=== PATIENT | female | born 1990 | race Caucasian/White ===

== ENCOUNTER 2016-07-27 23:33 | Emergency (ER) | payer OTHER ==
[2016-07-28] MEDS ORDERED: IV NORMAL SALINE 1,000ML 1,000 ML IV SCH (00:04)
--- NOTE | 2016-07-28 00:30 | PHYS DOC ---
General Chief Complaint: ABDOMINAL PAIN Stated Complaint: PAIN IN LOWER ABDOMEN AND VAGINA,10 WEEKS PREGNAT Time Seen by MD: 23:44 Source: patient Exam Limitations: no limitations Problems: History of Present Illness Initial Comments Pt is 25/F to ED c/o miscarriage. Pt states she is 10 weeks gestation, she had a miscarriage last April and became with current prior to having a period, so LMP was January but not applicable to current . Pt A6, she follows with Dr Wilder [facility] [place]. Pt had US evaluation 2.5 weeks ago described as normal. Pt says earlier today she developed severe b/l lower abdominal pain and vaginal discomfort "like someone punched me in the vagina" which she states are symptoms associated with her prior miscarriages. Denies vaginal discharge no bleeding. No cp/sob/vo/calf swelling pt is very anxious and fearful of another miscarriage. Timing/Duration: 4-6 hours Severity: severe Modifying Factors: improves with other Associated Symptoms: other Allergies: Coded Allergies: Penicillins (Verified Allergy, Intermediate, 04/25/15) Past Medical History Medical History: hypertension (hypoglycemia) Surgical History: noncontributory (CS) Social History Smoker: non-smoker Alcohol: none Drugs: none Review of Systems Constitutional: denies chills, denies diaphoresis, denies fever, malaise Respiratory: denies cough, denies shortness of breath Cardiovascular: denies chest pain, denies palpitations, denies syncope Gastrointestinal: see HPI Genitourinary: see HPI Musculoskeletal: denies back pain, denies joint swelling, denies neck pain Psychiatric/Neurological: denies headache, denies numbness, denies paresthesia Physical Exam General Appearance: mild distress, obese Eyes: bilateral eye EOMI, bilateral eye PERRL, bilateral eye normal inspection Ear, Nose, Throat: hearing grossly normal, normal ENT inspection, normal pharynx Neck: non-tender, supple Respiratory: normal breath sounds, no respiratory distress Cardiovascular: normal peripheral pulses, regular rate, rhythm Gastrointestinal: soft (obese nondistended BS normal nontender no masses) Rectal: deferred Back: no CVA tenderness, no vertebral tenderness Extremities: non-tender, normal inspection Neurologic/Psychiatric: crew director II-XII nml as tested, no motor/sensory deficits, alert, normal mood/affect, oriented x 3 Skin: normal color, warm/dry Orders, Labs, Meds PATIENT: ISMA BEE ACCOUNT: [id number] : 1990 LOCATION: ER AGE: 25 SEX: F EXAM STATUS: PRE ER ORD. PHYSICIAN: DANIAL HERRERA DO REASON: abdominal pain, h/o 5 miscarriages PROCEDURE: OB <14 WKS Ultrasound Ob Indication: Pelvic pain for 3 hours. The uterus measures 9.7 x 6.9 centimeters. There is an intrauterine gestational sac containing a pole. Freeborn-rump length measurement is approximately 3.4 centimeters consistent with 10 weeks 1 day gestation. heart rate was recorded at 168 beats per minute. No perigestational sac hemorrhage is seen. There is a 2.5 centimeter corpus luteum on the left. No free fluid is seen. Impression: Single live IUP 10 weeks 1 day gestational age. No complicating features are detected. Estimated date of confinement sonographically is 02/22/2017. Electronically signed by: Lamin Mayers MD (Jul 28, 2016 01:24:15) DICTATED AND SIGNED BY: LAMIN MAYERS MD DATE: 07/28/16 0124 CC: PCP,NO; DANIAL HERRERA DO ~ WBC 11.5, K+ 3.4 (20 meq kcl given) Departure Time of Disposition: 01:41 Disposition: 01 HOME, SELF-CARE Diagnosis: abdominal pain in , hypokalemia Condition: IMPROVED Patient Instructions: Abdominal Pain During , Tbli-km-Keep, Heartburn During , Medicines During Additional Instructions: See handout for approved meds during . Eat one banana twice daily until doctor follow up. Continue care and vitamins. Drink plenty of fluids, gatorade/water. OTC tylenol as needed. Follow up with your audit manager as scheduled. Return to ED with new or changing symptoms. DANIAL HERRERA DO Jul 28, 2016 00:29
[2016-07-28 01:09] LABS: BASO # 0.4 x10^3/uL (0.0-0.2); BASO % 3 % (0-3); EOS # 0.2 x10^3/uL (0.0-0.7); EOS % 2 % (0-3); HEMATOCRIT 43.5 % (36.0-47.0); HEMOGLOBIN 14.3 g/dL (12.0-15.5); LYMPH # 3.3 x10^3/uL (1.0-4.8); LYMPH % 29 % (24-48); MEAN CORPUSCULAR HEMOGLOBIN 28 pg (25-35); MEAN CORPUSCULAR HGB CONC 33 g/dL (31-37); MEAN CORPUSCULAR VOLUME 86 fL (79-100); MONO # 0.6 x10^3/uL (0.0-1.1); MONO % 5 % (0-9); NEUT # 7.1 x10^3uL (1.8-7.7); NEUT % 62 % (31-73); PLATELET COUNT 222 x10^3/uL (140-400); RED BLOOD COUNT 5.09 x10^6/uL (3.50-5.40); RED CELL DISTRIBUTION WIDTH 14.3 % (11.5-14.5); WHITE BLOOD COUNT 11.5 x10^3/uL (4.0-11.0)
[2016-07-28 01:24] LABS: BACTERIA,URINE FEW /HPF (0-FEW); BILIRUBIN,URINE NEG (NEG); CLARITY,URINE HAZY; COLOR,URINE YELLOW; GLUCOSE,URINE NEG (NEG); NITRITE,URINE NEG (NEG); RBC,URINE OCC /HPF (0-2); SQUAMOUS EPITHELIAL CELL,UR MOD /LPF; UROBILINOGEN,URINE 0.2 mg/dL (0.2 mg/dL); WBC,URINE OCC /HPF (0-4)
--- NOTE | 2016-07-28 01:25 | RAD ---
Ultrasound Ob Indication: Pelvic pain for 3 hours. The uterus measures 9.7 x 6.9 centimeters. There is an intrauterine gestational sac containing a pole. [place]au-rump length measurement is approximately 3.4 centimeters consistent with 10 weeks 1 day gestation. heart rate was recorded at 168 beats per minute. No perigestational sac hemorrhage is seen. There is a 2.5 centimeter corpus luteum on the left. No free fluid is seen. Impression: Single live IUP 10 weeks 1 day gestational age. No complicating features are detected. Estimated date of confinement sonographically is 02/22/2017. Electronically signed by: Lamin Mayers MD (Jul 28, 2016 01:24:15)
[2016-07-28 01:47] LABS: ALBUMIN 3.3 g/dL (3.4-5.0); CALCIUM 9.3 mg/dL (8.5-10.1); CREATININE 0.7 mg/dL (0.6-1.0); DIRECT BILIRUBIN 0.1 mg/dL (0.0-0.2); GFR 101.1; POTASSIUM 3.4 mmol/L (3.5-5.1); TOTAL BILIRUBIN 0.3 mg/dL (0.2-1.0); TOTAL PROTEIN 7.3 g/dL (6.4-8.2)
[2016-07-28] MEDS ORDERED: POTASSIUM CHLORIDE 20 MEQ TABLET.ER. PO ONE (02:30)
[2016-07-28 02:40] VITALS: BP 138/61
== END 2016-07-28 02:40 | disposition home or self-care (01) ==
LOC: ER 23:33
DX: O26.891 Other specified pregnancy related conditions, first trimester (principal); R10.9 Unspecified abdominal pain; N89.8 Other specified noninflammatory disorders of vagina; I10 Essential (primary) hypertension; E16.2 Hypoglycemia, unspecified; Z3A.10 10 weeks gestation of pregnancy; Z88.0 Allergy status to penicillin
CPT/HCPCS: 36415; 76801; 80048; 80076; 81001; 84702; 85027; 96360; 99285-25; J7030

== ENCOUNTER 2018-05-10 21:29 | Emergency (ER) | payer OTHER ==
[~2018-05-10] VITALS: Ht 157.5 cm; Wt 159.0 kg
--- NOTE | 2018-05-10 21:35 | ED.ADGEN ---
Past History Past Medical History: Hypertension, Other Past Surgical History: Other Alcohol Use: None Drug Use: None Adult General Chief Complaint Chief Complaint ".. I am bleeding.. .and having cramping.. this is my 9 th preg... I ve had only 3 live births.. and I loss two of them due to premature births..." HPI HPI Patient is a 27 year old FEMALE who presents with above hx and complaints vaginal bleeding and cramping. Patient has history of nine pregnancies.- 5 miscarriages. 3 live births. All 3 live births were premature. Two of the live births due to prematurity. Patient recently had developed cramping and was seen at the [facility] in [facility] on Sunday. Patient stated that time ultrasound did not show any acute changes. Patient estimates she is in excess of 10 weeks gravid. Patient has been doing all her and follow-up care with the women's clinic at [facility]. Patient denies any trauma. Patient is very anxious about finding blood when she wiped after a urination tonight. Review of Systems Review of Systems Constitutional: Denies fever or chills [] Eyes: Denies change in visual acuity, redness, or eye pain [] HENT: Denies nasal congestion or sore throat [] Respiratory: Denies cough or shortness of breath [] Cardiovascular: No additional information not addressed in HPI [] GI: Plaints of pelvic cramping and abdominal pain, nausea,. Denies vomiting, bloody stools or diarrhea [] : Denies dysuria or hematuria . Has complaints []vaginal bleeding Musculoskeletal: Denies back pain or joint pain [] Integument: Denies rash or skin lesions [] Neurologic: Denies headache, focal weakness or sensory changes [] Endocrine: Denies polyuria or polydipsia [] All other systems were reviewed and found to be within normal limits, except as documented in this note. Family History Family History Noncontributory Current Medications Current Medications Current Medications Medications (Trade) Dose Ordered Sig/Ace Start Time Stop Time Status Last Admin Dose Admin Lactated Ringer's 1,000 ml @ 1,000 mls/hr Q1H 05/10/18 21:36 05/10/18 22:36 DC 05/10/18 23:15 1,000 MLS/HR Allergies Allergies Allergies Coded Allergies Type Severity Reaction Last Updated Verified Penicillins Allergy Intermediate 04/25/15 Yes Physical Exam Physical Exam Constitutional: Moderate acute distress, non-toxic appearance. [] HENT: Normocephalic, atraumatic, bilateral external ears normal, oropharynx moist, no oral exudates, nose normal. [] Eyes: PERRLA, EOMI, conjunctiva normal, no discharge. [] Neck: Normal range of motion, no tenderness, supple, no stridor. [] Cardiovascular:Heart rate regular rhythm, no murmur [] Lungs & Thorax: Bilateral breath sounds equal at apexes with basilar crackles on auscultation [] Abdomen: Bowel sounds normal, soft, lower pelvic tenderness, no masses, no pulsatile masses. [] Morbidly obese. Vaginal exam shows no active bleeding. Also disclosed. There is some old blood noted. No cervical motion tenderness. Skin: Warm, dry, no erythema, no rash. [] Back: No tenderness, no CVA tenderness. [] Extremities: No tenderness, no cyanosis, no clubbing, ROM intact, ankle edema. [ ] 3+ patellar reflex. Neurologic: Alert and oriented X 3, normal motor function, normal sensory function, no focal deficits noted. [] Psychologic: Affect very anxious, judgement normal, mood normal. [] Current Patient Data Vital Signs Vital Signs Date Time Temp Pulse Resp B/P (MAP) Pulse Ox O2 Delivery O2 Flow Rate FiO2 05/10/18 21:40 97.8 104 20 97 Room Air Lab Results Laboratory Tests Test 05/10/18 22:40 White Blood Count 9.8 x10^3/uL (4.0-11.0) Red Blood Count 4.63 x10^6/uL (3.50-5.40) Hemoglobin 13.4 g/dL (12.0-15.5) Hematocrit 39.4 % (36.0-47.0) Mean Corpuscular Volume 85 fL (79-100) Mean Corpuscular Hemoglobin 29 pg (25-35) Mean Corpuscular Hemoglobin Concent 34 g/dL (31-37) Red Cell Distribution Width 14.9 % (11.5-14.5) H Platelet Count 207 x10^3/uL (140-400) Neutrophils (%) (Auto) 60 % (31-73) Lymphocytes (%) (Auto) 32 % (24-48) Monocytes (%) (Auto) 6 % (0-9) Eosinophils (%) (Auto) 2 % (0-3) Basophils (%) (Auto) 0 % (0-3) Neutrophils # (Auto) 5.9 x10^3uL (1.8-7.7) Lymphocytes # (Auto) 3.1 x10^3/uL (1.0-4.8) Monocytes # (Auto) 0.6 x10^3/uL (0.0-1.1) Eosinophils # (Auto) 0.2 x10^3/uL (0.0-0.7) Basophils # (Auto) 0.0 x10^3/uL (0.0-0.2) Prothrombin Time 10.4 SEC (9.4-11.4) Prothrombin Time INR 1.0 (0.9-1.1) PTT 24 SEC (23-33) Urine Collection Type Unknown Urine Color Yellow Urine Clarity Hazy Urine pH 5.5 Urine Specific [place] >=1.030 Urine Protein Neg (NEG-TRACE) Urine Glucose (UA) Neg mg/dL (NEG) Urine Ketones (Stick) Trace mg/dL (NEG) Urine Blood Large (NEG) Urine Nitrite Neg (NEG) Urine Bilirubin Neg (NEG) Urine Urobilinogen Dipstick 0.2 mg/dL (0.2 mg/dL) Urine Leukocyte Esterase Neg (NEG) Urine RBC 3-5 /HPF (0-2) Urine WBC Occ /HPF (0-4) Urine Squamous Epithelial Cells Occ /LPF Urine Bacteria Few /HPF (0-FEW) Maternal Serum HCG Beta Subunit 10858 mIU/mL (0-6) H Sodium Level 137 mmol/L (136-145) Potassium Level 3.6 mmol/L (3.5-5.1) Chloride Level 101 mmol/L (98-107) Carbon Dioxide Level 28 mmol/L (21-32) Anion Gap 8 (6-14) Blood Urea Nitrogen 9 mg/dL (7-20) Creatinine 0.7 mg/dL (0.6-1.0) Estimated GFR (Cockcroft-Gault) 99.6 Glucose Level 117 mg/dL (70-99) H Calcium Level 9.1 mg/dL (8.5-10.1) Total Bilirubin 0.3 mg/dL (0.2-1.0) Direct Bilirubin 0.1 mg/dL (0.0-0.2) Aspartate Amino Transferase (AST) 18 U/L (15-37) Alanine Aminotransferase (ALT) 25 U/L (14-59) Alkaline Phosphatase 67 U/L (46-116) Total Protein 7.6 g/dL (6.4-8.2) Albumin 3.2 g/dL (3.4-5.0) L Lipase 88 U/L (73-393) Urine Opiates Screen Neg (NEG) Urine Methadone Screen Neg (NEG) Urine Barbiturates Neg (NEG) Urine Phencyclidine Screen Neg (NEG) Urine Amphetamine/Methamphetamine Neg (NEG) Urine Benzodiazepines Screen Neg (NEG) Urine Cocaine Screen Neg (NEG) Urine Cannabinoids Screen Neg (NEG) Urine Ethyl Alcohol Neg (NEG) EKG EKG [] Radiology/Procedures Radiology/Procedures Ultrasound shows a anterior uterine . heart rates 160s to 180s. Estimated 10 weeks 3-4 days.[] No acute pathology appreciated Course & Med Decision Making Course & Med Decision Making Pertinent Labs and Imaging studies reviewed. (See chart for details). Patient to push fluids. Patient to monitor pad counts. Patient to keep follow- up with primary care and [employer] [facility] [facility]. Follow-up pending cultures here. Noted with patient her elevated blood pressure and ankle edema. Advise she was high risk for complications- and must follow up with Obgyn. [] Final Impression Final Impression 1. Threaten [] 2. IUP 10 weeks 3. BHG= 85,244 4. Blood Type O+ 5. EDC= 12/03/18 6. Morbid Obesity 7. Hypertension Dragon Disclaimer Dragon Disclaimer This electronic medical record was generated, in whole or in part, using a voice recognition dictation system. LOBITO BARNARD MD May 10, 2018 21:35
[2018-05-10] MEDS ORDERED: IV RINGERS SOLUTION,LACTATED 1,000 ML IV SCH (21:36)
[2018-05-10 23:12] LABS: BASO % 0 % (0-3); EOS # 0.2 x10^3/uL (0.0-0.7); EOS % 2 % (0-3); HEMATOCRIT 39.4 % (36.0-47.0); HEMOGLOBIN 13.4 g/dL (12.0-15.5); LYMPH # 3.1 x10^3/uL (1.0-4.8); LYMPH % 32 % (24-48); MEAN CORPUSCULAR HEMOGLOBIN 29 pg (25-35); MEAN CORPUSCULAR HGB CONC 34 g/dL (31-37); MEAN CORPUSCULAR VOLUME 85 fL (79-100); MONO # 0.6 x10^3/uL (0.0-1.1); MONO % 6 % (0-9); NEUT # 5.9 x10^3uL (1.8-7.7); NEUT % 60 % (31-73); PLATELET COUNT 207 x10^3/uL (140-400); RED BLOOD COUNT 4.63 x10^6/uL (3.50-5.40); RED CELL DISTRIBUTION WIDTH 14.9 % (11.5-14.5); WHITE BLOOD COUNT 9.8 x10^3/uL (4.0-11.0)
[2018-05-10 23:18] LABS: ALBUMIN 3.2 g/dL (3.4-5.0); CALCIUM 9.1 mg/dL (8.5-10.1); CREATININE 0.7 mg/dL (0.6-1.0); DIRECT BILIRUBIN 0.1 mg/dL (0.0-0.2); GFR 99.6; POTASSIUM 3.6 mmol/L (3.5-5.1); TOTAL BILIRUBIN 0.3 mg/dL (0.2-1.0); TOTAL PROTEIN 7.6 g/dL (6.4-8.2)
[2018-05-10 23:24] LABS: BARBITURATES NEG (NEG); BENZODIAZEPINES NEG (NEG); CANNABINOIDS NEG (NEG); COCAINE NEG (NEG); METHADONE NEG (NEG); OPIATES NEG (NEG); PHENCYCLIDINE NEG (NEG)
[2018-05-10 23:30] LABS: AMPHETAMINE/METHAMPHETAMINE NEG (NEG)
[2018-05-10 23:31] LABS: BACTERIA,URINE FEW /HPF (0-FEW); BILIRUBIN,URINE NEG (NEG); CLARITY,URINE HAZY; COLOR,URINE YELLOW; GLUCOSE,URINE NEG (NEG); NITRITE,URINE NEG (NEG); SQUAMOUS EPITHELIAL CELL,UR OCC /LPF; UROBILINOGEN,URINE 0.2 mg/dL (0.2 mg/dL); WBC,URINE OCC /HPF (0-4)
--- NOTE | 2018-05-11 00:19 | RAD ---
INDICATION: spotting, pain COMPARISON: None. TECHNIQUE: Grayscale and color ultrasound images uterus and adnexa. Transabdominal and transvaginal images obtained. FINDINGS: Uterus: 95 x 84 x 57 mm. Intrauterine is identified with a pole with crown-rump length of 35 mm and heart beat of 180. There may be a small amount of fluid in the cervical canal. Right Ovary: 30 x 21 x 17 mm. Left Ovary: 36 x 23 x 21 mm. IMPRESSION: 1. Intrauterine is identified with estimated gestational age of 10 weeks and 3 days with a positive heartbeat. Recommend routine anomaly screening at 18-22 weeks. Electronically signed by: Connor Tam MD (05/11/2018 12:15 AM) [facility]
[2018-05-11 00:45] VITALS: BP 120/76
[2018-05-13 14:09] LABS: CHLAMYDIA PROBE Negative (Negative)
== END 2018-05-11 00:51 | disposition home or self-care (01) ==
LOC: ER 21:29
DX: O20.0 Threatened abortion (principal); O99.211 Obesity complicating pregnancy, first trimester; E66.01 Morbid (severe) obesity due to excess calories; O16.1 Unspecified maternal hypertension, first trimester; Z3A.10 10 weeks gestation of pregnancy; Z88.0 Allergy status to penicillin
CPT/HCPCS: 36415; 76801; 76817; 80048; 80076; 80307; 81001; 83690; 84702; 85025; 85610; 85730; 86592; 86703; 86705; 86709; 86803; 86900; 86901; 87340; 87491; 87591; 99285; J7120